=== PATIENT | female | born 1955 | race Caucasian/White ===

== ENCOUNTER → 2018-10-30 | Outpatient (CLI) | payer MEDICARE | END | disposition home or self-care (01) | LOC: PCVCCLINIC 09:00 | PROVIDERS: ATTEND Nuclear Medicine Nuclear Cardiology | DX: I70.1 Atherosclerosis of renal artery (principal); I12.9 Hypertensive chronic kidney disease with stage 1 through stage 4 chronic kidney disease, or unspecified chronic kidney disease; N18.9 Chronic kidney disease, unspecified; E78.00 Pure hypercholesterolemia, unspecified; E03.9 Hypothyroidism, unspecified; Z88.2 Allergy status to sulfonamides | CPT/HCPCS: G0463 ==

== ENCOUNTER → 2019-02-15 | Outpatient (CLI) | payer MEDICARE ==
--- NOTE | 2019-02-15 10:49 | PCVCIMAG ---
EXAM: BILATERAL RENAL ULTRASOUND AND BILATERAL RENAL DUPLEX INDICATION: Hypertension. History of right renal artery angioplasty for FMD. FINDINGS: Right kidney: Length measures 9.1 cm. No hydronephrosis or extensive renal scarring. Right renal duplex: Adequate technical quality. No sonographic evidence of renal artery stenosis. The aortic to renal artery ratio is 1.5. The renal vein is patent. Left kidney: Length measures 10.0 cm. No hydronephrosis or extensive renal scarring. Left renal duplex: Adequate technical quality. No sonographic evidence of renal artery stenosis. Note is made of 2 left renal arteries. The aortic to renal artery ratio is 1.1. The renal vein is patent. Bladder: No obvious abnormalities. IMPRESSION: No significant renal artery stenosis. No hydronephrosis bilaterally. Incidental note is made of a 1.9 x 2.4 cm benign-appearing cyst right hepatic lobe. LOC:[id number]
== END | disposition home or self-care (01) ==
LOC: PCVCIMAG 08:36
PROVIDERS: ATTEND Nuclear Medicine Nuclear Cardiology
DX: I10 Essential (primary) hypertension (principal)
CPT/HCPCS: 76770; 93975

== ENCOUNTER → 2019-02-19 | Outpatient (CLI) | payer MEDICARE | END | disposition home or self-care (01) | LOC: PCVCCLINIC 12:36 | PROVIDERS: ATTEND Nuclear Medicine Nuclear Cardiology | DX: I70.1 Atherosclerosis of renal artery (principal); I77.3 Arterial fibromuscular dysplasia; E78.00 Pure hypercholesterolemia, unspecified; I12.9 Hypertensive chronic kidney disease with stage 1 through stage 4 chronic kidney disease, or unspecified chronic kidney disease; N18.9 Chronic kidney disease, unspecified; E03.9 Hypothyroidism, unspecified | CPT/HCPCS: G0463 ==